=== PATIENT | male | born 1960 | race Two or more races ===

== ENCOUNTER 2021-11-05 14:03 | Emergency (ER) | payer BC, OTHER ==
[~2021-11-05] VITALS: Ht 170.2 cm; Wt 74.4 kg
[2021-11-05] MEDS ORDERED: KETOROLAC TROMETH 60MG/2ML VIAL IM ONE (16:00)
[2021-11-05] MEDS ORDERED: methylPREDNISolone SOD SUCC 125 MG/2 ML VL IM ONE (16:00)
[2021-11-05] MEDS ORDERED: INDO50SU RE (16:29)
[2021-11-05] MEDS ORDERED: COLC1CAP PO (16:29)
[2021-11-05 16:38] VITALS: BP 106/75
== END 2021-11-05 16:50 | disposition home or self-care (01) ==
LOC: ER 14:11
DX: M10.9 Gout, unspecified (principal)
CPT/HCPCS: 96372; 99284; J1885; J2930